=== PATIENT | female | born 1965 | race Two or more races ===

== ENCOUNTER → 2017-08-08 | Outpatient (CLI) | payer BC ==
--- NOTE | 2017-08-08 10:27 | Diagnostic Imaging Report ---
PROCEDURE: Frontal and lateral views of the chest. COMPARISON: None. INDICATIONS: COUGH, CONGESTION FINDINGS: Lines/tubes: None. Lungs: The lungs are well inflated and clear. There is no evidence of pneumonia or pulmonary edema. Pleura: There is no pleural effusion or pneumothorax. Heart and mediastinum: The heart and the mediastinum are normal. Bones: No acute bony abnormality. Soft tissues: Bilateral breast implants. IMPRESSION: No acute radiographic abnormality. Dictated by: Jeffery Herrera M.D. on 08/08/2017 at 10:28 Electronically approved by: Jeffery Herrera M.D. on 08/08/2017 at 10:28
== END ==
LOC: RAD 09:30
DX: R05 Cough (principal); R09.89 Other specified symptoms and signs involving the circulatory and respiratory systems
CPT/HCPCS: 71046